=== PATIENT | female | born 2000 | race Caucasian/White ===

== ENCOUNTER 2023-11-14 07:09 | Emergency (ER) | payer MEDICAID ==
[~2023-11-14] VITALS: Ht 160 cm; Wt 118.1 kg
[2023-11-14 07:29] LABS: URINE HCG NEGATIVE (NEG)
[2023-11-14 07:32] LABS: BILIRUBIN,URINE SMALL (Neg); CLARITY,URINE CLOUDY (Clear); COLOR,URINE YELLOW (Yellow); GLUCOSE, URINE NEGATIVE (Neg); KETONES,URINE NEGATIVE (Neg); LEUKOCYTE ESTERASE ,URINE NEGATIVE (Neg); NITRITES, URINE NEGATIVE (Neg); OCCULT BLOOD,URINE NEGATIVE (Neg); PROTEIN,URINE TRACE mg/dl (Neg); UROBILINOGEN,URINE 0.2 E.U/dL (0.2-1.0)
[2023-11-14 07:36] LABS: UA COLLECTION TYPE CLN CATCH MIDSTREAM
[2023-11-14 07:38] LABS: SQUAMOUS EPITHELIAL CELL,UR MANY /LPF (FEW)
[2023-11-14 07:40] LABS: AMORPHOUS URATES 2+
[2023-11-14 07:41] LABS: MUCUS STRANDS MODERATE /LPF (Neg)
[2023-11-14 07:43] LABS: BACTERIA,URINE 2+ /HPF (Neg); RBC,URINE 0-2 /HPF (0-2); WBC,URINE 0-4 /HPF (0-4)
[2023-11-14 07:51] LABS: HEMOGLOBIN 14.2 g/dl (12.0-16.0); MEAN CORPUSCULAR HEMOGLOBIN 28.2 PG (27.0-31.0); MEAN PLATELET VOLUME 8.7 FL (7.4-10.4); RED BLOOD COUNT 5.02 X10'6 (4.20-5.60)
[2023-11-14 07:53] LABS: BASOPHILS # (AUTO) 0.1 X10'3 (0-0.2); BASOPHILS % (AUTO) 1.1 % (0-1); EOSINOPHILS # (AUTO) 0.1 X10'3 (0-0.9); EOSINOPHILS % (AUTO) 1.1 % (0-6); LYMPHOCYTES # (AUTO) 2.2 X10'3 (1.1-4.8); LYMPHOCYTES % (AUTO) 22.5 % (21-51); MEAN CORPUSCULAR VOLUME 85.6 FL (78-98); MONOCYTES # (AUTO) 0.6 X10'3 (0-0.9); NEUTROPHILS # (AUTO) 6.7 X10'3 (1.8-7.7); NEUTROPHILS % (AUTO) 69.3 % (42-75); PLATELET COUNT 329 X10'3 (140-440); RED CELL DISTRIBUTION WIDTH 13.7 % (11.5-14.5); WHITE BLOOD COUNT 9.7 X10'3 (4.5-11.0)
[2023-11-14 08:03] LABS: ALANINE AMINOTRANSFERASE 82 U/L (12-78); ALBUMIN 3.9 G/DL (3.4-5.0); ALBUMIN/GLOBULIN RATIO 0.9 (1.1-1.5); ALKALINE PHOSPHATASE 75 IU/L (46-116); ANION GAP 7 (8-16); ASPARTATE AMINO TRANSFERASE 35 U/L (10-37); BILIRUBIN,TOTAL 0.7 MG/DL (0.1-1.0); BLOOD UREA NITROGEN 12 MG/DL (7-18); BUN/CREATININE RATIO 15.8 (10.0-20.0); CALCIUM 9.2 MG/DL (8.5-10.1); CHLORIDE 105 MMOL/L (99-107); CREATININE 0.76 MG/DL (0.40-0.90); GLUCOSE 109 MG/DL (70-104); LIPASE 26 U/L (16-77); POTASSIUM 4.1 MMOL/L (3.5-5.1); SODIUM 136 MMOL/L (135-145); TOTAL CARBON DIOXIDE 24.4 MMOL/L (24-32); TOTAL PROTEIN 8.2 G/DL (6.4-8.2); eCRCL 95 ML/MIN; eGFR > 90 ML/MIN
[2023-11-14 08:31] VITALS: TEMP 98.4
[2023-11-14 09:00] VITALS: BP 158/85; PULSE 64; RESP 18; O2SAT 100
[2023-11-14] MEDS: HYDROcodone/acetaminophen 5mg/325mg tablet PO ONE (09:03)
[2023-11-14] MEDS: ondansetron/PF 4mg/2ml inj IV ONE (09:08)
[2023-11-14] MEDS ORDERED: HYDR-3965 PO (09:09)
== END 2023-11-14 09:24 | disposition home or self-care (01) ==
LOC: ER 07:10
DX: K80.50 Calculus of bile duct without cholangitis or cholecystitis without obstruction (principal)
CPT/HCPCS: 36415; 76700; 80053; 81001; 81025; 83690; 85025; 96374; 99285; J2405

== ENCOUNTER 2023-11-19 04:19 | Inpatient (IN) | payer MEDICAID ==
[2023-11-19] VITALS (20 sets, daily range): BP systolic 105–142; BP diastolic 60–89; PULSE 52–107; RESP 12–16; TEMP 97.6–98.6; O2SAT 90–100
[~2023-11-19] VITALS: Ht 160 cm; Wt 117.7 kg
[~2023-11-19 04:19] MED LIST: HYDR-3965 PO
[2023-11-19 05:17] LABS: BASOPHILS # (AUTO) 0.1 X10'3 (0-0.2); BASOPHILS % (AUTO) 0.9 % (0-1); EOSINOPHILS # (AUTO) 0.2 X10'3 (0-0.9); EOSINOPHILS % (AUTO) 1.4 % (0-6); HEMATOCRIT 44.2 % (35.0-45.0); HEMOGLOBIN 14.4 g/dl (12.0-16.0); LYMPHOCYTES # (AUTO) 2.5 X10'3 (1.1-4.8); LYMPHOCYTES % (AUTO) 20.9 % (21-51); MEAN CORPUSCULAR HEMOGLOBIN 27.6 PG (27.0-31.0); MEAN CORPUSCULAR HGB CONC 32.5 g/dL (33.0-36.5); MEAN CORPUSCULAR VOLUME 84.9 FL (78-98); MONOCYTES # (AUTO) 0.5 X10'3 (0-0.9); NEUTROPHILS # (AUTO) 8.6 X10'3 (1.8-7.7); NEUTROPHILS % (AUTO) 72.8 % (42-75); PLATELET COUNT 337 X10'3 (140-440); RED BLOOD COUNT 5.21 X10'6 (4.20-5.60); RED CELL DISTRIBUTION WIDTH 13.8 % (11.5-14.5); WHITE BLOOD COUNT 11.8 X10'3 (4.5-11.0)
[2023-11-19] MEDS: ketorolac trometh 15mg/ml vial 15 MG/ML ML IV ONE (05:22)
[2023-11-19] MEDS: ondansetron/PF 4mg/2ml inj IV ONE (05:23)
[2023-11-19] MEDS: acetaminophen 1,000mg/100ml IV 100 ML IV ONE (05:25)
[2023-11-19 05:29] LABS: ALANINE AMINOTRANSFERASE 88 U/L (12-78); ALBUMIN 4.1 G/DL (3.4-5.0); ALKALINE PHOSPHATASE 83 IU/L (46-116); ANION GAP 11 (8-16); ASPARTATE AMINO TRANSFERASE 39 U/L (10-37); BILIRUBIN,TOTAL 0.5 MG/DL (0.1-1.0); BLOOD UREA NITROGEN 10 MG/DL (7-18); BUN/CREATININE RATIO 14.7 (10.0-20.0); CALCIUM 9.5 MG/DL (8.5-10.1); CHLORIDE 104 MMOL/L (99-107); CREATININE 0.68 MG/DL (0.40-0.90); GLUCOSE 105 MG/DL (70-104); LIPASE 30 U/L (16-77); POTASSIUM 3.7 MMOL/L (3.5-5.1); SODIUM 139 MMOL/L (135-145); TOTAL CARBON DIOXIDE 24.3 MMOL/L (24-32); TOTAL PROTEIN 8.4 G/DL (6.4-8.2); eCRCL 106 ML/MIN; eGFR > 90 ML/MIN
[2023-11-19] MEDS: normal saline 1000ml 1,000 ML IV ONE (05:41)
[2023-11-19] MEDS: piperacillin/tazo 4.5gm/100ml 100 ML IV ONE (07:47)
[2023-11-19] MEDS ORDERED: morphine 2 MG/ML inj. syringe IV PRN ×2 (08:25→15:00)
[2023-11-19] MEDS ORDERED: mag hydrox/Alum hydrox/simeth 30ml oral suspension PO PRN (08:25)
[2023-11-19] MEDS ORDERED: acetaminophen 325mg tablet PO PRN (08:25)
[2023-11-19] MEDS ORDERED: magnesium hydroxide 30ml (MOM) UD suspension PO PRN (08:25)
[2023-11-19] MEDS: BUPIVAcaine 2.5mg/ml inj 50ml vial (contains preservative) SQ ONE (14:20)
[2023-11-19 14:42] LABS: URINE HCG NEGATIVE (NEG)
[2023-11-19 14:51] LABS: BILIRUBIN,URINE NEGATIVE (Neg); CLARITY,URINE CLOUDY (Clear); COLOR,URINE YELLOW (Yellow); GLUCOSE, URINE NEGATIVE (Neg); KETONES,URINE TRACE mg/dl (Neg); LEUKOCYTE ESTERASE ,URINE NEGATIVE (Neg); NITRITES, URINE NEGATIVE (Neg); OCCULT BLOOD,URINE LARGE (Neg); PH,URINE 5.5 (4.8-8.0); PROTEIN,URINE NEGATIVE (Neg); UROBILINOGEN,URINE 0.2 E.U/dL (0.2-1.0)
[2023-11-19 14:54] LABS: UA COLLECTION TYPE CLN CATCH MIDSTREAM
[2023-11-19 14:59] LABS: SQUAMOUS EPITHELIAL CELL,UR MANY /LPF (FEW)
[2023-11-19] MEDS ORDERED: hydrALAZINE 20mg/ml inj. IV PRN (15:00)
[2023-11-19] MEDS ORDERED: labetalol 20mg/4ml (5mg/ml) syringe IV PRN (15:00)
[2023-11-19] MEDS ORDERED: fentaNYL/PF 50MCG/1 ML 2ML syringe IV PRN ×2 (15:00)
[2023-11-19 15:01] LABS: RBC,URINE 50-100 /HPF (0-2)
[2023-11-19 15:02] LABS: BACTERIA,URINE NONE SEEN /HPF (Neg); WBC,URINE 0-4 /HPF (0-4)
[2023-11-19 15:08] LABS: URINE AMPHETAMINE SCREEN NEGATIVE (Neg); URINE BARBITUATE SCREEN NEGATIVE (Neg); URINE BENZODIAZEPINES SCREEN NEGATIVE (Neg); URINE CANNABINOID SCREEN NEGATIVE (Neg); URINE COCAINE SCREEN NEGATIVE (Neg); URINE METHADONE SCREEN NEGATIVE (Neg); URINE OPIATE SCREEN POSITIVE (Neg); URINE PHENCYCLIDINE SCREEN NEGATIVE (Neg)
[2023-11-19] MEDS: BUPIVAcaine 2.5mg/ml inj 50ml vial (contains preservative) ONE (15:09)
[2023-11-19] MEDS ORDERED: sevoflurane 250ml liquid IH ONE (15:38)
[2023-11-19] MEDS ORDERED: ceFAZolin 1000mg inj ONE ×3 (15:50)
[2023-11-19] MEDS ORDERED: LIDOcaine 1%/PF 5ML 10 MG/ML VIAL ONE (15:55)
[2023-11-19] MEDS ORDERED: propofol inj 20 ML IV ONE (15:55)
[2023-11-19] MEDS ORDERED: rocuronium 10mg/ml inj IV ONE ×2 (15:55)
[2023-11-19] MEDS ORDERED: fentaNYL/PF 50MCG/1 ML 2ML syringe ONE (15:56)
[2023-11-19] MEDS: metroNIDAZOLE-Flagyl 500mg/NS 100 ML IV SCH (16:00)
[2023-11-19] MEDS ORDERED: acetaminophen 1,000mg/100ml IV 100 ML IV ONE (16:04)
[2023-11-19] MEDS ORDERED: midazolam 1 mg/ML 2ml injection ONE (16:04)
[2023-11-19] MEDS ORDERED: sugammadex 200mg/2ml injection IV ONE (16:24)
[2023-11-19] MEDS ORDERED: labetalol 20mg/4ml (5mg/ml) syringe IV ONE (16:34)
[2023-11-19] MEDS: morphine 4 MG/ML inj SYRINge IV PRN (17:24)
[2023-11-19] MEDS ORDERED: naloxone 0.4 mg/ml inj IV PRN (17:25)
[2023-11-19] MEDS ORDERED: ondansetron/PF 4mg/2ml inj IV PRN (17:25)
[2023-11-19] MEDS: ondansetron/PF 4mg/2ml inj IV PRN (17:30)
[2023-11-19] MEDS: ketorolac trometh 30MG/ML vial 30 MG/ML VIAL IV ONE (17:30)
[2023-11-19] MEDS: proCHLORperazine 10 MG/2 ml inj IV ONE (18:00)
[2023-11-19] MEDS ORDERED: ipratropium/albuterol 3ml nebule NEB PRN (18:40)
[2023-11-19] MEDS: normal saline 1000ml 1,000 ML IV SCH (20:15)
[2023-11-19] MEDS: ciprofloxacin lact 400MG/200ML 200 ML IV SCH (20:16)
[2023-11-19] MEDS: HYDROcodone/acetaminophen 5mg/325mg tablet PO PRN (20:16)
[2023-11-19] MEDS: docusate sod 100mg capsule PO SCH (20:16)
[2023-11-20 02:00] VITALS: BP 91/54; PULSE 87; RESP 16; TEMP 96.8; O2SAT 97
[2023-11-20] MEDS: ketorolac trometh 30MG/ML vial 30 MG/ML VIAL IV PRN (02:51)
[2023-11-20] MEDS: ondansetron/PF 4mg/2ml inj IV PRN (03:28)
[2023-11-20 05:11] LABS: BASOPHILS % (AUTO) 0.3 % (0-1); EOSINOPHILS % (AUTO) 0 % (0-6); HEMOGLOBIN 12.7 g/dl (12.0-16.0); LYMPHOCYTES # (AUTO) 1.2 X10'3 (1.1-4.8); LYMPHOCYTES % (AUTO) 10.8 % (21-51); MEAN CORPUSCULAR HGB CONC 32.5 g/dL (33.0-36.5); MEAN CORPUSCULAR VOLUME 85.9 FL (78-98); MEAN PLATELET VOLUME 8.8 FL (7.4-10.4); MONOCYTES # (AUTO) 0.5 X10'3 (0-0.9); MONOCYTES % (AUTO) 4.6 % (2-12); NEUTROPHILS % (AUTO) 84.3 % (42-75); PLATELET COUNT 316 X10'3 (140-440); RED BLOOD COUNT 4.54 X10'6 (4.20-5.60); RED CELL DISTRIBUTION WIDTH 13.9 % (11.5-14.5); WHITE BLOOD COUNT 10.7 X10'3 (4.5-11.0)
[2023-11-20 05:30] LABS: ALANINE AMINOTRANSFERASE 75 U/L (12-78); ALBUMIN 3.1 G/DL (3.4-5.0); ALBUMIN/GLOBULIN RATIO 0.8 (1.1-1.5); ALKALINE PHOSPHATASE 63 IU/L (46-116); ANION GAP 10 (8-16); ASPARTATE AMINO TRANSFERASE 43 U/L (10-37); BILIRUBIN,TOTAL 0.5 MG/DL (0.1-1.0); BLOOD UREA NITROGEN 5 MG/DL (7-18); BUN/CREATININE RATIO 10.6 (10.0-20.0); CALCIUM 8.7 MG/DL (8.5-10.1); CHLORIDE 109 MMOL/L (99-107); CREATININE 0.47 MG/DL (0.40-0.90); GLUCOSE 121 MG/DL (70-104); POTASSIUM 3.7 MMOL/L (3.5-5.1); SODIUM 140 MMOL/L (135-145); TOTAL CARBON DIOXIDE 21.3 MMOL/L (24-32); TOTAL PROTEIN 6.9 G/DL (6.4-8.2); eCRCL 154 ML/MIN; eGFR > 90 ML/MIN
[2023-11-20 06:00] VITALS: BP 124/73; PULSE 87; RESP 18; TEMP 96.5; O2SAT 94
[2023-11-20] MEDS: ringers solution, lacted 1,000 ML IV SCH (06:45)
[2023-11-20 08:00] VITALS: RESP 16
[2023-11-20 10:00] VITALS: BP 108/53; PULSE 69; RESP 20; TEMP 97.7; O2SAT 96
[2023-11-20] MEDS ORDERED: HYDROcodone/acetaminophen 10/325mg tab PO PRN (10:45)
[2023-11-20 10:57] VITALS: RESP 16
[2023-11-20] MEDS: HYDROcodone/acetaminophen 5mg/325mg tablet PO PRN (10:57)
[2023-11-20] MEDS ORDERED: ONDA-243 PO (12:06)
== END 2023-11-20 14:30 | disposition home or self-care (01) | DRG 263 ==
LOC: ER 04:20 → ED HOLD 08:25 → ORTHO 4S 14:41
PROVIDERS: ADMIT Family Medicine; ATTEND Family Medicine
PROC: 8E0W4CZ Robotic Assisted Procedure of Trunk Region, Percutaneous Endoscopic Approach (ICD-10-PCS; 2023-11-19)
PROC: 0FT44ZZ Resection of Gallbladder, Percutaneous Endoscopic Approach (ICD-10-PCS; principal; 2023-11-19 15:30)
DX: K80.00 Calculus of gallbladder with acute cholecystitis without obstruction (principal); J45.909 Unspecified asthma, uncomplicated; K82.8 Other specified diseases of gallbladder; K21.9 Gastro-esophageal reflux disease without esophagitis; Z98.891 History of uterine scar from previous surgery
CPT/HCPCS: 36415; 76700; 80053; 80305; 81001; 81025; 82948; 83690; 84145; 85025; 87040; 87081; 94760; 97161; 97530; 99285; A4215; A4618; A7000; G0378; J0131; J0690; J0744; J0780; J1100; J1885; J2250; J2270; J2405; J2543; J2704; J3010; J3490; J7030; J7120